=== PATIENT | male | born 1975 | race Caucasian/White ===

== ENCOUNTER → 2017-07-03 | Outpatient (REF) ==
[~2017-07-03] MED LIST: ALTACE 5MG5 MG PO; ASPIR-LOW81 MG PO; HCTZ 25MG25 MG PO; LIPITOR20 MG PO; NASONEX SPRAY17 GM NS; ZYLOPRIM 300MG300 MG PO; ZYRTEC 10MG10 MG PO
== END ==
LOC: WSOH 10:11
DX: Z02.4 Encounter for examination for driving license (principal)

== ENCOUNTER → 2023-01-15 | Outpatient (CLI) | payer BC | LOC: COL.VAS 11:51 | DX: I34.0 Nonrheumatic mitral (valve) insufficiency (principal); R01.1 Cardiac murmur, unspecified ==